=== PATIENT | female | born 1985 | race Two or more races ===

== ENCOUNTER 2017-12-05 21:45 | Emergency (ER) | payer OTHER ==
[~2017-12-05] VITALS: Ht 160 cm; Wt 108.3 kg
[2017-12-05 21:49] VITALS: BP 144/76
[2017-12-05] MEDS ORDERED: SERT25TA PO (21:57)
[2017-12-05] MEDS ORDERED: METF500T17 PO (21:57)
[2017-12-05] MEDS ORDERED: DIAZEPAM 5 MG TABLET ONE (22:11)
[2017-12-05] MEDS ORDERED: IBUPROFEN 200 MG TABLET ONE (22:11)
[2017-12-05] MEDS ORDERED: DIAZEPAM 5 MG TABLET PO ONE (22:30)
[2017-12-05] MEDS ORDERED: IBUPROFEN 200 MG TABLET PO ONE (22:30)
[2017-12-05 22:51] LABS: CULTURE INDICATED? NO; MICROSCOPIC NOT IND
== END 2017-12-05 23:34 | disposition home or self-care (01) ==
LOC: ED 22:56
DX: S29.012A Strain of muscle and tendon of back wall of thorax, initial encounter (principal); X58.XXXA Exposure to other specified factors, initial encounter; Y93.89 Activity, other specified; Y99.8 Other external cause status; Y92.89 Other specified places as the place of occurrence of the external cause
CPT/HCPCS: 72072; 81003; 99285